=== PATIENT | male | born 1985 | race Two or more races ===

== ENCOUNTER 2019-10-29 19:00 | Emergency (ER) | payer SELFPAY ==
[~2019-10-29] VITALS: Ht 167.6 cm; Wt 77.1 kg
[2019-10-29 19:15] VITALS: BP 134/80
[2019-10-29 19:58] LABS: Basophils # (auto) 0 uL; Basophils % (auto) 0.2 % (0.0-2.0); Eosinophils # (auto) 0 uL; Eosinophils % (auto) 0.5 % (0.0-7.0); Hematocrit 43.4 % (41.0-53.0); Hemoglobin 15.2 g/dL (13.5-17.5); Lymphocytes # (auto) 1.6 uL; Mean Corpuscular Hemoglobin 29.9 pg (28.0-32.0); Mean Corpuscular Volume 85.5 fL (80.0-100.0); Monocytes # (auto) 0.5 uL; Monocytes % (auto) 6.2 % (0.0-12.0); Neutrophils # (auto) 6.1 uL; Neutrophils % (auto) 74.1 % (37.0-80.0); Nucleated Red Blood Cells % 0.2 %; Platelet Count (auto) 216 10^3/uL (140-450); Red Blood Cells 5.08 10^6/uL (4.5-5.90); Red Cell Distribution Width 13.1 % (11.8-14.3); White Blood Cell 8.3 10^3/uL (4.4-10.8)
[2019-10-29 20:05] LABS: Anion Gap 9 (5-15); BUN/Creatinine Ratio 6.9; Blood Alcohol < 3.0 mg/dL (0-5); Blood Urea Nitrogen 7 mg/dL (7-18); Calcium 8.4 mg/dL (8.5-10.1); Carbon Dioxide 24 mmol/L (21-32); Chloride 107 mmol/L (98-107); GFR African American 107 mL/min; GFR Non-African American 89 mL/min; Glucose 108 mg/dL (74-106); Potassium 3.3 mmol/L (3.5-5.1); Sodium 140 mmol/L (136-145)
[2019-10-29 20:08] LABS: Alanine Aminotransferase 27 U/L (16-61); Alkaline Phosphatase 67 U/L (45-117); Aspartate Aminotransferase 19 U/L (15-37); Bilirubin, Total 0.4 mg/dL (0.2-1.0); Total Protein 7.6 g/dL (6.4-8.2)
== END 2019-10-29 21:48 | disposition left against medical advice (07) ==
LOC: ER 19:00 → EDBD 19:00 → ER 21:47
DX: F41.9 Anxiety disorder, unspecified (principal); Z53.21 Procedure and treatment not carried out due to patient leaving prior to being seen by health care provider
CPT/HCPCS: 36415; 80053; 80320; 85025

== ENCOUNTER 2021-12-09 15:00 | Emergency (ER) | payer SELFPAY ==
[~2021-12-09] VITALS: Ht 172.7 cm; Wt 104.3 kg
[2021-12-09 21:07] VITALS: BP 136/94
== END 2021-12-09 21:38 | disposition home or self-care (01) ==
LOC: ER 15:00
DX: R04.0 Epistaxis (principal)
CPT/HCPCS: 30901

== ENCOUNTER 2021-12-12 11:24 | Emergency (ER) | payer MEDICAID, OTHER ==
[~2021-12-12] VITALS: Ht 172.7 cm; Wt 104.3 kg
[2021-12-12] MEDS ORDERED: OXYMETAZOLINE HCL 0.05 % NASAL SPRAY 15ML EACHNOSTRI ONE (12:30)
[2021-12-12 12:53] LABS: Basophils # (auto) 0 10 ^3/uL (0-0.2); Basophils % (auto) 0.2 % (0.0-2.0); Eosinophils # (auto) 0.1 10 ^3/uL (0-0.8); Eosinophils % (auto) 1.6 % (0.0-7.0); Hemoglobin 14.5 g/dL (13.5-17.5); Lymphocytes # (auto) 1.5 10 ^3/uL (0.4-5.4); Lymphocytes % (auto) 19.4 % (10.0-50.0); Mean Corpuscular Hemoglobin 29.9 pg (28.0-32.0); Mean Corpuscular Hgb Conc. 35.4 g/dL (32.0-36.0); Mean Corpuscular Volume 84.5 fL (80.0-100.0); Monocytes # (auto) 0.6 10 ^3/uL (0-1.3); Neutrophils # (auto) 5.7 10 ^3/uL (1.6-8.6); Neutrophils % (auto) 70.8 % (37.0-80.0); Nucleated Red Blood Cells % 0.2 %; Red Blood Cells 4.85 10^6/uL (4.5-5.90); Red Cell Distribution Width 12.5 % (11.8-14.3)
[2021-12-12 13:00] LABS: INR 1.08 (0.9-1.15); Partial Thromboplastin Time 32.8 sec (23.6-33.0)
[2021-12-12 13:10] LABS: Albumin 3.7 g/dL (3.4-5.0); Calcium 8.6 mg/dL (8.5-10.1); Potassium 3.8 mmol/L (3.5-5.1)
[2021-12-12 13:13] LABS: Bilirubin, Total 0.3 mg/dL (0.2-1.0); Total Protein 7.4 g/dL (6.4-8.2)
[2021-12-12 14:10] VITALS: BP 121/78
== END 2021-12-12 14:27 | disposition home or self-care (01) ==
LOC: ER 11:24
DX: R04.0 Epistaxis (principal)
CPT/HCPCS: 36415; 80053; 85025; 85610; 85730